=== PATIENT | female | born 1990 | race Caucasian/White ===

== ENCOUNTER → 2018-04-29 14:41 | Outpatient (CLI) | payer OTHER, SELFPAY ==
--- NOTE | 2018-05-21 16:16 | P.HOLT.S_ITS ---
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 Rare PACs and PVCs but no clear association with any patient reported symptoms Clinical correlation suggested
== END ==
PROVIDERS: PCP Family Medicine; Visit Provider Family Medicine
DX: R00.2 Palpitations (principal)
CPT/HCPCS: 0296T; 0298T

== ENCOUNTER → 2018-05-28 09:30 | Outpatient (CLI) | payer OTHER, SELFPAY ==
[2018-05-28 11:01] LABS: Add Manual Diff / Slide Review NO; Basophils Absolute Auto 100 /uL (0-100); Basophils Percent Auto 0.7 % (0-2); Eosinophils Absolute Auto 100 /uL (0-450); Eosinophils Percent Auto 0.8 % (2-4); Hematocrit 40.1 % (36-46); Lymphocytes Absolute Auto 2100 /uL (1100-4500); Lymphocytes Percent Auto 29.2 % (25-40); Mean Corpuscular HGB Conc 32.4 % (30-36); Mean Corpuscular Hemoglobin 26.1 PG (26-34); Mean Corpuscular Volume 80.6 fL (80-100); Monocytes Absolute Auto 500 /uL (0-900); Monocytes Percent Auto 6.9 % (3-14); Neutrophils Absolute Auto 4500 /uL (1500-7000); Neutrophils Percent Auto 62.4 % (50-75); Platelet Count 421 X10^3/uL (150-400); Red Blood Cell Count 4.97 X10^6/uL (4.0-5.2); Red Cell Distribution Width 15.3 % (11.6-14.8); White Blood Cell Count 7.1 X10^3/uL (4.5-11.0)
[2018-05-28 11:50] LABS: Alanine Aminotransferase 25 IU/L (9-52); Albumin 4.8 g/dL (3.5-5.0); Albumin Globulin Ratio 1.5 (1.0-2.8); Alkaline Phosphatase 66 U/L (38-126); Aspartate Aminotransferase 23 IU/L (14-36); BUN Creatinine Ratio 16.3 (6-22); Bilirubin Total 0.6 mg/dL (0.2-1.3); Blood Urea Nitrogen 13 mg/dL (7-17); Calcium 9.7 mg/dL (8.4-10.2); Carbon Dioxide 25 mmol/L (22-32); Chloride 101 mmol/L (98-107); Estimated Glomerular Filt Rate > 60.0 mL/min (>60); Globulin 3.2 g/dL (1.7-4.1); Glucose 92 mg/dL (70-100); HEMOLYSIS < 15 (0-50); Potassium 4.4 mmol/L (3.4-5.1); Sodium 139 mmol/L (137-145)
[2018-05-28 12:18] LABS: TSH w/ Reflex to FT4 1.63 uIU/mL (0.47-4.68)
== END ==
PROVIDERS: PCP Family Medicine; Visit Provider Family Medicine
DX: R00.2 Palpitations (principal)
CPT/HCPCS: 36415; 80053; 84443; 85025

== ENCOUNTER → 2018-06-09 08:24 | Outpatient (CLI) | payer OTHER, SELFPAY ==
--- NOTE | 2018-06-09 08:25 | DI.ECHO.S_ITS ---
[facility] +---------+ : : [address] : : : : [id number] : : : : Phone: [phone] Echocardiogram Report + + :Name: LAURA VILLA Study Date: 06/09/2018 Height: 61 in : :[facility] Exam Location: IS Weight: 145 lb : : Gender: Female BSA: 1.6 m2 : :: 1990 Age: 27 yrs BP: 105/68 mmHg: :Reason For Study: PALPITATION : : Performed By: Parag Paula : :Referring: KUSH NGUYỄN : + + Interpretation Summary The left ventricle is normal in size. There is normal left ventricular wall thickness. The ejection fraction is estimated to be 60-65%. There are no focal wall motion abnormalities. The right ventricle is normal in size and function. -Essentially normal echocardiogram with no change compared to the prior echo on 05/05/2011. Procedure: A two-dimensional transthoracic echocardiogram with color flow and Doppler was performed. The study quality was technically adequate. Comparison is made with the echocardiogram of 04/25/11. The patient was in normal sinus rhythm during the exam. Left Ventricle: The left ventricle is normal in size. There is normal left ventricular wall thickness. The ejection fraction is estimated to be 60-65%. There are no focal wall motion abnormalities. Diastolic parameters suggest probable normal left ventricular diastolic function and normal filling pressures. Right Ventricle: The right ventricle is normal in size and function. Atria: Both atria are normal in size. There is no Doppler evidence for an interatrial shunt. Mitral Valve: The mitral valve is normal in structure and function. There is no mitral regurgitation noted. Aortic Valve: The aortic valve is trileaflet. The aortic valve opens well. There is no aortic regurgitation. Tricuspid Valve: The tricuspid valve is normal in structure and function. No tricuspid regurgitation. Pulmonary artery pressures cannot be estimated because of the lack of a measurable TR jet velocity. Pulmonic Valve: The pulmonic valve is normal in structure and function. There is trace pulmonic regurgitation. Great Vessels: The aortic root is normal size. The dimensions of the ascending aorta are normal. The pulmonary artery is normal size. The IVC is of normal diameter and collapses greater than 50% with a sniff. This suggests a low right atrial pressure of 3 mm Hg. Pericardium/ Pleura There is no pericardial effusion. There is no pleural effusion. MMode/2D Measurements & Calculations LVIDd: 4.5 cm LVOT diam: 2.0 cm LVIDs: 2.9 cm Ao root diam: 2.6 cm FS: 34.5 % asc Aorta Diam: 2.5 cm EPSS: 0.78 cm Ao Arch Diam (Prox Trans): 1.6 cm IVSd: 0.76 cm LVPWd: 0.68 cm LV fisher. diameter/BSA (cm/m^2): 2.7 LV sys. diameter/BSA (cm/m^2): 1.8 LA dimension: 2.8 cm RA long axis: 5.0 cm LA A2 area: 13.4 cm2 RA area: 12.3 cm2 LA A4 area: 17.3 cm2 RA vol: 25.7 ml LA length (vol): 5.2 cm RA : 15.6 ml/m2 LA vol: 37.9 ml IVC diam: 1.3 cm LA vol index: 23.0 ml/m2 Doppler Measurements & Calculations Ao V2 max: 136.5 cm/sec LVOT Max Lukas: 98.9 cm/sec Ao V2 mean: 89.6 cm/sec LV V1 max P.9 mmHg Ao max P.5 mmHg LV V1 VTI: 21.0 cm Ao mean P.6 mmHg KRISTOPHER(I,D): 2.5 cm2 Ao V2 VTI: 26.3 cm KRISTOPHER(V,D): 2.3 cm2 sev ratio: 0.80 KRISTOPHER indexed to BSA (cm^2/m^2): 1.5 MV E max lukas: 78.6 cm/sec PA V2 max: 74.8 cm/sec MV A max lukas: 52.1 cm/sec PA V2 mean: 53.4 cm/sec MV E/A: 1.5 PA mean P.3 mmHg Med Peak E' Lukas: 12.5 cm/sec PA pr(Accel): 21.6 mmHg E/E' med: 6.3 PA Accel Time: 0.12 sec Lat Peak E' Lukas: 13.9 cm/sec E/E' lat: 5.7 E/e' average: 6.0 MV dec time: 0.13 sec SV(LVOT): 66.4 ml Electronically signed by: Enzo Donis M.D. on Reading Physician:06/09/2018 08:55 PM
== END ==
LOC: ECHO 08:24
PROVIDERS: PCP Family Medicine; Visit Provider Family Medicine
DX: R00.2 Palpitations (principal)
CPT/HCPCS: C8929

== ENCOUNTER → 2019-12-21 14:03 | Outpatient (CLI) | payer OTHER, SELFPAY | PROVIDERS: PCP Family Medicine; Referring Provider Internal Medicine; Visit Provider Internal Medicine | DX: Z23 Encounter for immunization (principal) | CPT/HCPCS: 90471; 90686 ==

== ENCOUNTER → 2020-01-19 10:06 | Outpatient (CLI) | payer OTHER, SELFPAY ==
[2020-01-20 07:16] LABS: COVID19 Sendout Not Detected (Not Detect)
== END ==
PROVIDERS: PCP Family Medicine; Visit Provider Physician Assistant
DX: Z11.59 Encounter for screening for other viral diseases (principal); R05 Cough; J02.9 Acute pharyngitis, unspecified
CPT/HCPCS: 87070; 87635

== ENCOUNTER → 2020-04-27 09:29 | Outpatient (CLI) | payer OTHER, SELFPAY ==
--- NOTE | 2020-04-27 | DI.US.S_ITS ---
PROCEDURE: US OB <= 14 WEEKS FETUS INDICATIONS: RULE OUT ECTOPIC OUTSIDE/PRIOR DATING DATA: Last menstrual period (LMP): 02/23/20 LMP-based estimated date of delivery (GEORGE): 11/29/20. First dating scan (date and location): This study. Estimated date of delivery (GEORGE) from first dating scan: 11/30/20. TECHNIQUE: Real-time scanning was performed of the fetus and maternal pelvic organs, with image documentation. Endovaginal scanning was also performed to better visualize the fetus and maternal ovaries. COMPARISON: None. FINDINGS: Embryo: Single living intrauterine gestation with heart rate 171 beats per minute and crown-rump length 2.3 cm which correlates with a gestational age of 9 weeks 0 days Measurement variability in dating: +/- 4 weeks by LMP, +/- 7 days by mean sac diameter (use before 6 weeks gestation if crown-rump length not able to be measured), +/- 5 days by crown-rump length (up to 8 weeks 6 days gestation), +/- 7 days by crown-rump length (up to 13 weeks 6 days gestation). Maternal organs: Ovaries poorly seen . IMPRESSION: Intrauterine gestation, 9 weeks 0 days gestational age with delivery date projected to be centered on 11/30/20, +/-5 days. Dictated by: Ford Gay M.D. on 04/27/2020 at 11:41 Approved by: Ford Gay M.D. on 04/27/2020 at 11:42
== END ==
PROVIDERS: PCP Family Medicine; Referring Provider Advanced Practice Midwife; Visit Provider Advanced Practice Midwife
DX: O36.80X0 Pregnancy with inconclusive fetal viability, not applicable or unspecified; Z3A.09 9 weeks gestation of pregnancy
CPT/HCPCS: 76801; 76817

== ENCOUNTER → 2021-02-05 10:51 | Outpatient (CLI) | payer OTHER, SELFPAY | PROVIDERS: PCP Family Medicine; Referring Provider Internal Medicine; Visit Provider Internal Medicine | DX: Z23 Encounter for immunization (principal) | CPT/HCPCS: 90471; 90686 ==

== ENCOUNTER 2021-07-14 16:28 | Emergency (ER) | payer OTHER, SELFPAY ==
[2021-07-14] VITALS (7 sets, daily range): BP systolic 120–131; BP diastolic 59–80; PULSE 80–90; RESP 16–34; TEMP 36.3; O2SAT 97–98
[2021-07-14 17:02] LABS: Add Manual Diff / Slide Review NO; Basophils Absolute Auto 100 /uL (0-100); Basophils Percent Auto 1.8 % (0-2); Eosinophils Absolute Auto 200 /uL (0-450); Hematocrit 39.7 % (36-46); Hemoglobin 13.2 g/dL (12.0-16.0); Lymphocytes Absolute Auto 3200 /uL (1100-4500); Lymphocytes Percent Auto 41.3 % (25-40); Mean Corpuscular HGB Conc 33.3 % (30-36); Mean Corpuscular Hemoglobin 29.2 PG (26-34); Mean Corpuscular Volume 87.6 fL (80-100); Monocytes Absolute Auto 600 /uL (0-900); Monocytes Percent Auto 7.2 % (3-14); Neutrophils Absolute Auto 3700 /uL (1500-7000); Neutrophils Percent Auto 47.7 % (50-75); Platelet Count 381 X10^3/uL (150-400); Red Blood Cell Count 4.53 X10^6/uL (4.0-5.2); Red Cell Distribution Width 13.3 % (11.6-14.8); White Blood Cell Count 7.7 X10^3/uL (4.5-11.0)
[2021-07-14 17:08] LABS: Alanine Aminotransferase 30 IU/L (<35); Albumin 4.3 g/dL (3.5-5.0); Albumin Globulin Ratio 1.5 (1.0-2.8); Alkaline Phosphatase 79 U/L (38-126); Aspartate Aminotransferase 48 IU/L (14-36); BUN Creatinine Ratio 20.6 (6-22); Bilirubin Total 0.4 mg/dL (0.2-1.3); Blood Urea Nitrogen 14 mg/dL (7-17); Calcium 8.7 mg/dL (8.4-10.2); Carbon Dioxide 26 mmol/L (22-32); Chloride 106 mmol/L (98-107); Estimated Glomerular Filt Rate > 60 mL/min (>60); Globulin 2.8 g/dL (1.7-4.1); Glucose 111 mg/dL (70-100); HEMOLYSIS < 15 (0-50); Lipase 106 U/L (23-300); Potassium 3.7 mmol/L (3.4-5.1); Sodium 140 mmol/L (137-145); Total Protein 7.1 g/dL (6.3-8.2)
--- NOTE | 2021-07-14 17:48 | ED.GENADULT ---
HPI - General Adult General Chief complaint: Abdominal Pain Stated complaint: V/D bloody stool, severe abd pain Time Seen by Provider: 07/14/21 16:35 Source: patient Mode of arrival: Ambulatory Limitations: no limitations History of Present Illness HPI narrative: 31-year-old female who is here for evaluation of upper abdominal pain. She states that the discomfort has been there for the past several weeks. Does get worse when she eats. Some nausea but no vomiting. She also has had some diarrhea with some blood in the stool. She is not been evaluated for these symptoms up to this point. No rashes. No urinary symptoms. No prior abdominal surgeries. She does state that there are periods of time when she is not having any discomfort however when she eats the symptoms worsen. Related Data Previous Rx's Medication Instructions Recorded norgestimate 0.25 mg-ethinyl 1 tab PO DAILY #28 tab 03/06/21 estradiol 35 mcg tablet (Sprintec (28)) sucralfate 1 gram tablet (Carafate) 1 g PO QACHS #60 tab 07/14/21 Allergies Allergy/AdvReac Type Severity Reaction Status Date / Time prednisolone [PREDNISOLONE] Allergy Unknown swollen Verified 01/19/20 09:37 gums/sore mouth Review of Systems Constitutional Constitutional: Denies fever(s) Cardiovascular Cardiovascular: Denies chest pain and Denies dyspnea Respiratory Respiratory: Denies dyspnea Gastrointestinal Gastrointestinal: Reports abdominal pain, Reports diarrhea, Reports nausea and Denies vomiting Genitourinary Genitourinary: Denies dysuria Musculoskeletal Musculoskeletal: Reports system reviewed and no additional complaints, except as documented Integumentary/Breasts Skin/Breast: Reports system reviewed and no additional complaints, except as documented Hematologic/Lymphatic On Anticoagulants: No Patient History Medical History Obesity (BMI 30.0-34.9) Surgical History Anesthesia Blepharitis (~1991) History of tonsillectomy (~2006) Status post delivery (~2011) Family History Father Age: 64 Heart disease Diabetes mellitus Grandfather Age: 89 Heart disease Grandmother Age: 74 Diabetes mellitus Mother Age: 58 Thyroid disease Social History marital status: unmarried,single number of children: 1 household members: family (4 kids total! 3 stepkids) lives independently: Yes education level: high school occupational status: employed Smoking Status: Never smoker alcohol intake: current (social) substance use type: does not use Smoking Status: Never smoker Exam Initial Vital Signs Initial Vital Signs: Vital Signs Temperature 97.4 F L 07/14/21 16:32 Pulse Rate 83 07/14/21 16:32 Respiratory Rate 24 07/14/21 16:32 Blood Pressure 131/60 07/14/21 16:32 Pulse Oximetry 97 07/14/21 16:32 HENMT Head: normal to inspection and normocephalic Resp Effort & Inspection: normal respiratory effort Auscultation: clear to auscultation bilaterally Cardio Rate: regular rate Rhythm: regular rhythm GI Inspection: normal to inspection Palpation: soft, No guarding and tender (Epigastric and right upper quadrant) Back/Spine/Pelvis Back: No CVA tenderness Skin General: no rashes or lesions noted Neuro General: patient alert, patient awake and moves all extremities Extrem General: capillary refill normal Psych Appearance: grossly normal and well kempt Course Orders Ordered: ED Orders 07/14/21 14:45 Complete Blood Count AUTO DIFF Stat Comprehensive Metabolic Panel Stat Lipase Stat 07/14/21 17:28 Ictotest Urine Stat Urine Microscopic Stat 07/14/21 17:49 US abdomen limited Stat Discontinued Medications Al Hydrox/Mg Hydrox/Simethicone 20 ml/ Lidocaine HCl 15 ml 0 ml PO NOW ONE Stop: 07/14/21 17:49 Last Admin: 07/14/21 18:04 Dose: 45 ml Documented by: RICARDO Pantoprazole Sodium (Pantoprazole 40 Mg Vial) 40 mg IV NOW ONE Stop: 07/14/21 17:49 Last Admin: 07/14/21 18:03 Dose: 40 mg Documented by: RICARDO Sucralfate (Sucralfate 1 Gm Tablet) 1 gm PO NOW ONE Stop: 07/14/21 19:29 Vital Signs Vital signs: Vital Signs - 8 hr 07/14/21 16:32 07/14/21 17:01 07/14/21 17:30 Temperature 97.4 F L Pulse Rate 83 80 85 Respiratory Rate 24 34 H 22 Blood Pressure 131/60 127/59 L 128/70 Pulse Oximetry 97 98 98 Medical Decision Making Lab Data Result diagrams: 07/14/21 14:45 07/14/21 14:45 Labs: Lab Results 07/14/21 07/14/21 07/14/21 Range/Units 14:45 14:45 17:28 WBC 7.7 (4.5-11.0) X10^3/uL RBC 4.53 (4.0-5.2) X10^6/uL Hgb 13.2 (12.0-16.0) g/dL Hct 39.7 (36-46) % MCV 87.6 (80-100) fL MCH 29.2 (26-34) PG MCHC 33.3 (30-36) % RDW 13.3 (11.6-14.8) % Plt Count 381 (150-400) X10^3/uL Neut % (Auto) 47.7 L (50-75) % Lymph % (Auto) 41.3 H (25-40) % Jewell % (Auto) 7.2 (3-14) % Eos % (Auto) 2.0 (2-4) % Baso % (Auto) 1.8 (0-2) % Neut # (Auto) 3700 (4646-6368) /uL Lymph # (Auto) 3200 (3579-6308) /uL Jewell # (Auto) 600 (0-900) /uL Eos # (Auto) 200 (0-450) /uL Baso # (Auto) 100 (0-100) /uL Sodium 140 (137-145) mmol/L Potassium 3.7 (3.4-5.1) mmol/L Chloride 106 (98-107) mmol/L Carbon Dioxide 26 (22-32) mmol/L BUN 14 (7-17) mg/dL Creatinine 0.68 (0.52-1.04) mg/dL Estimated GFR > 60 (>60) mL/min BUN/Creatinine Ratio 20.6 (6-22) Glucose 111 H (70-100) mg/dL Calcium 8.7 (8.4-10.2) mg/dL Total Bilirubin 0.4 (0.2-1.3) mg/dL AST 48 H (14-36) IU/L ALT 30 (<35) IU/L Alkaline Phosphatase 79 (38-126) U/L Total Protein 7.1 (6.3-8.2) g/dL Albumin 4.3 (3.5-5.0) g/dL Globulin 2.8 (1.7-4.1) g/dL Albumin/Globulin Ratio 1.5 (1.0-2.8) Lipase 106 (23-300) U/L Ur Bilirubin Confirm (Negative) Urine RBC 1-5/hpf (0-5/HPF) Urine WBC 5-10/hpf H (0-5/HPF) Ur Squamous Epith Cells 5-10 /hpf H (0-5/HPF) Urine Bacteria Many (>30) H (None) Urine Mucus 1+ H (Negative) Ur Culture Indicated? Cult not indicated 07/14/21 Range/Units 17:28 WBC (4.5-11.0) X10^3/uL RBC (4.0-5.2) X10^6/uL Hgb (12.0-16.0) g/dL Hct (36-46) % MCV (80-100) fL MCH (26-34) PG MCHC (30-36) % RDW (11.6-14.8) % Plt Count (150-400) X10^3/uL Neut % (Auto) (50-75) % Lymph % (Auto) (25-40) % Jewell % (Auto) (3-14) % Eos % (Auto) (2-4) % Baso % (Auto) (0-2) % Neut # (Auto) (0591-3462) /uL Lymph # (Auto) (4534-4503) /uL Jewell # (Auto) (0-900) /uL Eos # (Auto) (0-450) /uL Baso # (Auto) (0-100) /uL Sodium (137-145) mmol/L Potassium (3.4-5.1) mmol/L Chloride (98-107) mmol/L Carbon Dioxide (22-32) mmol/L BUN (7-17) mg/dL Creatinine (0.52-1.04) mg/dL Estimated GFR (>60) mL/min BUN/Creatinine Ratio (6-22) Glucose (70-100) mg/dL Calcium (8.4-10.2) mg/dL Total Bilirubin (0.2-1.3) mg/dL AST (14-36) IU/L ALT (<35) IU/L Alkaline Phosphatase (38-126) U/L Total Protein (6.3-8.2) g/dL Albumin (3.5-5.0) g/dL Globulin (1.7-4.1) g/dL Albumin/Globulin Ratio (1.0-2.8) Lipase (23-300) U/L Ur Bilirubin Confirm Negative (Negative) Urine RBC (0-5/HPF) Urine WBC (0-5/HPF) Ur Squamous Epith Cells (0-5/HPF) Urine Bacteria (None) Urine Mucus (Negative) Ur Culture Indicated? Point of Care Testing Test Results Negative Urine Dip Bedside Urine Glucose Negative Bedside Urine Bilirubin + 1 Bedside Urine Ketone - Negative Urine Specific [place] 1.030 Bedside Urine Occult Blood +/- Bedside Urine pH 5.5 Bedside Urine Protein +/- 15 Bedside Urine Urobilinogen - Negative Bedside Urine Nitrite - Negative Bedside Urine Leukocytes - Negative Esterase Point of care testing: Point of Care Testing Test Results Negative Urine Dip Bedside Urine Glucose Negative Bedside Urine Bilirubin + 1 Bedside Urine Ketone - Negative Urine Specific [place] 1.030 Bedside Urine Occult Blood +/- Bedside Urine pH 5.5 Bedside Urine Protein +/- 15 Bedside Urine Urobilinogen - Negative Bedside Urine Nitrite - Negative Bedside Urine Leukocytes - Negative Esterase Imaging Data US - abdomen: Radiologist's Impression: [place] [address] Ultrasound Report Signed Patient: Nava White MR#: [id number] : 1990 Acct:[id number] Age/Sex: 31 / F Date of Service: 07/14/21 Loc: ED Accession Number: [id number] ?? Procedure: US abdomen limited Ordering Provider: Jovani Vinson D.O. PROCEDURE: US ABDOMEN LIMITED ? INDICATIONS:? RUQ ab pain eval for Gb pathology ? TECHNIQUE:? Real-time focused scanning was performed of the abdomen, with image documentation.? ? COMPARISON:? None. ? FINDINGS:? There are 2 polyps within the anterior wall gallbladder measuring 3 mm. Gallbladder wall is otherwise within normal limits.? No cholelithiasis.? Negative sonographic Sutton sign.? No biliary ductal dilatation.? Pancreas is grossly unremarkable. ? IMPRESSION:? Gallbladder polyps.? No evidence of cholecystitis.? ? ? Dictated by: Moe Walter M.D. on 07/14/2021 at 18:56 ? ? Approved by: Moe Walter M.D. on 07/14/2021 at 18:57 MDM Narrative Medical decision making narrative: Labs are unremarkable here benign exam. Right upper quadrant ultrasound shows unremarkable gallbladder. LFTs unremarkable. Lipase unremarkable. Given her presentation and the symptoms she describes in the length of time that she has had the symptoms I feel that we can hold on any CT scan for now. Have a strong suspicion that her symptoms are gastric ulcer. Feel somewhat better after the GI cocktail. Was sent home on Carafate. She was given instructions on its use. We also discussed starting on a proton pump inhibitor after the Carafate and discussed contacting her primary doctor for follow-up to discuss the indications for referral to see GI for an upper endoscopy. Patient and her mother who was at bedside expressed understanding and agreement with plan. Discharge Plan Departure Patient Disposition: Home Clinical Impression: Abdominal pain Instructions: DI for Gastroesophageal Reflux Disease (GERD), DI for Abdominal Pain-Adult Activity Restrictions/Additional Instructions: Recommend that you take the Carafate as directed. After 7-10 days if your symptoms improve then you can take it as needed. If your symptoms return after this I recommend starting a medicine such as Nexium/Prilosec/as omeprazole etc. you can purchase these [id number]. I do recommend that you contact your primary doctor for follow-up as well. If your symptoms worsen please return to the emergency department for further evaluation. Prescriptions: New sucralfate [Carafate] 1 gram tablet 1 g PO QACHS Qty: 60 0RF No Action norgestimate-ethinyl estradiol [Sprintec (28)] 0.25-35 mg-mcg tablet 1 tab PO DAILY Qty: 28 3RF Referrals: Dawna Beach DO [Primary Care Provider] -
--- NOTE | 2021-07-14 17:49 | DI.US.S_ITS ---
PROCEDURE: US ABDOMEN LIMITED INDICATIONS: RUQ ab pain eval for Gb pathology TECHNIQUE: Real-time focused scanning was performed of the abdomen, with image documentation. COMPARISON: None. FINDINGS: There are 2 polyps within the anterior wall gallbladder measuring 3 mm. Gallbladder wall is otherwise within normal limits. No cholelithiasis. Negative sonographic Sutton sign. No biliary ductal dilatation. Pancreas is grossly unremarkable. IMPRESSION: Gallbladder polyps. No evidence of cholecystitis. Dictated by: Moe Walter M.D. on 07/14/2021 at 18:56 Approved by: Moe Walter M.D. on 07/14/2021 at 18:57
[2021-07-14] MEDS: PANTOPRAZOLE 40 MG VIAL IV (18:03)
[2021-07-14] MEDS: MAG HYDROX/ALUMINUM/SIMETH SUS 20 ML, LIDOCAINE VISCOUS 2% 15 ML PO (18:04)
[2021-07-14 18:06] LABS: Bacteria Urine Many (>30); Culture Indicated Urine Cult Not Indicated; Mucus Urine 1+ (Negative); RBC Urine 1-5/HPF (0-5/HPF); Squamous Epithelial Cell Urine 5-10 /HPF (0-5/HPF); WBC Urine 5-10/HPF (0-5/HPF)
[2021-07-14 18:07] LABS: Ictotest Urine Negative (Negative)
[2021-07-14] MEDS: SUCRALFATE 1 GM TABLET PO (19:51)
== END 2021-07-14 19:50 | disposition home or self-care (01) ==
PROVIDERS: Emergency Provider Emergency Medicine; PCP Family Medicine
DX: R10.10 Upper abdominal pain, unspecified (principal)
CPT/HCPCS: 36415; 76705; 80053; 81003; 81015; 81025; 83690; 85025; 96374; 99284; C9113

== ENCOUNTER → 2022-01-30 10:51 | Outpatient (CLI) | payer OTHER, SELFPAY | PROVIDERS: PCP Family Medicine; Referring Provider Internal Medicine; Visit Provider Internal Medicine | DX: Z23 Encounter for immunization (principal) | CPT/HCPCS: 90471; 90686 ==

== ENCOUNTER → 2022-03-25 14:58 | Outpatient (CLI) | payer OTHER, SELFPAY ==
[2022-03-25 16:41] LABS: Influenza A - CEPHEID Flu A NEGATIVE (NEGATIVE); Influenza B - CEPHEID Flu B NEGATIVE (NEGATIVE); Respiratory Syncytial Virus Negative (Negative)
[2022-03-25 16:44] LABS: COVID-19 CEPHEID 4-PLEX PCR Negative (Negative)
== END ==
PROVIDERS: PCP Family Medicine; Visit Provider Registered Nurse
DX: R05.1 Acute cough (principal); Z20.822 Contact with and (suspected) exposure to COVID-19
CPT/HCPCS: 0241U

== ENCOUNTER → 2024-11-24 12:17 | Outpatient (CLI) | payer BC, SELFPAY ==
[2024-11-24 13:00] LABS: Add Manual Diff / Slide Review NO; Hematocrit 41.7 % (36-46); Hemoglobin 13.8 g/dL (12.0-16.0); Lymphocytes Absolute Auto 2300 /uL (1100-4500); Mean Corpuscular HGB Conc 33.2 % (30-36); Mean Corpuscular Hemoglobin 29.4 PG (26-34); Mean Corpuscular Volume 88.5 fL (80-100); Platelet Count 360 X10^3/uL (150-400)
[2024-11-24 13:22] LABS: HEMOLYSIS < 15 (0-50); Iron 62 ug/dL (37-170)
[2024-11-24 13:34] LABS: Percent Iron Saturation 13 % (15-50); Total Iron Binding Capacity 475 ug/dL (265-497); Transferrin 416 mg/dL (206-381)
[2024-11-24 14:00] LABS: Ferritin 14 ng/mL (6-137)
[2024-11-24 14:56] LABS: Follicle Stimulating Hormone 4.91 mIU/mL
== END ==
PROVIDERS: PCP Student in an Organized Health Care Education/Training Program; Referring Provider Student in an Organized Health Care Education/Training Program; Visit Provider Student in an Organized Health Care Education/Training Program
DX: N92.0 Excessive and frequent menstruation with regular cycle (principal)
CPT/HCPCS: 36415; 82672; 82728; 83001; 83540; 83550; 84146; 85025

== ENCOUNTER → 2025-02-10 07:46 | Outpatient (CLI) | payer BC, SELFPAY ==
--- NOTE | 2025-02-10 07:47 | DI.US.S_ITS ---
PROCEDURE: US ABDOMEN LIMITED INDICATIONS: EPIGASTRIC PAIN. NAUSEA/VOMITING. TECHNIQUE: Real-time scanning was performed of the abdominal and retroperitoneal organs, with image documentation. COMPARISON: [facility], , US ABDOMEN LIMITED, 07/14/2021, 18:37. FINDINGS: Liver: Diffusely mildly increased at hepatic echotexture. No focal hepatic lesion. Gallbladder: 2 non mobile gallstones, including a a 1.4 cm stone in the gallbladder neck. Nonobstructive 1.3 cm stone in the gallbladder fundus. Circumferential gallbladder wall thickening up to 4 mm. Focal echogenic foci within the gallbladder anterior walking which which may represent adenomyomatosis. Increased echogenicity of the pericholecystic fat, likely reactive. Biliary ducts: Intrahepatic bile ducts are non-dilated. Extrahepatic bile duct caliber measures 3 mm. Normal is 6-7 mm or less in diameter, or 10 mm or less post-cholecystectomy. Pancreas: Visualized portions of the pancreas are sonographically normal. Miscellaneous: No free abdominal fluid. IMPRESSION: Findings concerning for acute sonographic cholecystitis. The patient was directed to the emergency room for further evaluation. The findings were conveyed by the sonographic technologist to the ER physician at 8:14 a.m on 02/10/2025. Dictated by: Jayden Cox M.D. on 02/10/2025 at 8:34 Approved by: Jayden Cox M.D. on 02/10/2025 at 8:36
== END ==
LOC: US 07:46
PROVIDERS: PCP Student in an Organized Health Care Education/Training Program; Referring Provider Student in an Organized Health Care Education/Training Program; Visit Provider Surgery
DX: K80.20 Calculus of gallbladder without cholecystitis without obstruction (principal); R10.13 Epigastric pain
CPT/HCPCS: 76705

== ENCOUNTER 2025-02-10 08:12 | Emergency (ER) | payer BC, SELFPAY ==
[2025-02-10] VITALS (9 sets, daily range): BP systolic 122–160; BP diastolic 62–90; PULSE 74–85; RESP 16; TEMP 36.8; O2SAT 68–100; BMI 31.4
--- NOTE | 2025-02-10 08:16 | ED.ABDPAIN ---
HPI - Abdominal Pain General Chief Complaint: Abdominal Pain Stated Complaint: Gallbladder pain , 2 months Time Seen by Provider: 02/10/25 08:15 History of Present Illness HPI narrative: 34-year-old female with history of obesity, no chronic medical issues, history of section, no other prior abdominal surgeries, here with intermittent upper abdominal discomfort. Patient reports pain has been ongoing for a couple of years. Since the end of December, or over the last month, she has had increased frequency of discomfort, typically every other night, associated with nausea and vomiting. She was referred to General surgery by her primary care physician due to concerns for peptic ulcer. Endoscopy was offered but she says what for a right upper quadrant ultrasound today to exclude biliary pathology. She was referred to the emergency department by radiologist given abnormal findings. Patient is not in any pain at this time. She is not aware of any fever. She has no associated urinary symptoms. Related Data Previous Rx's ?Medication ?Instructions ?Recorded norgestimate 0.25 mg-ethinyl 1 tab PO DAILY #84 tabs 12/09/24 estradiol 0.035 mg tablet (Sprintec (28)) famotidine 20 mg tablet 20 mg PO DAILY #90 tabs 01/16/25 ondansetron 4 mg disintegrating 4 mg PO Q8H 3 days #9 tabs 02/10/25 tablet Allergies Allergy/AdvReac Type Severity Reaction Status Date / Time prednisolone (PREDNISOLONE) Allergy Unknown swollen Verified 02/10/25 08:24 gums/sore mouth Review of Systems Review of Systems Narrative: Pertinent ROS obtained and negative except as stated in HPI Patient History Medical History Obesity (BMI 30.0-34.9) Surgical History Anesthesia Blepharitis (~1991) Status post delivery (~2011) History of tonsillectomy (~2006) Family History Father Age: 67 Heart disease Diabetes mellitus Grandfather Age: 92 Heart disease Grandmother Age: 77 Diabetes mellitus Mother Age: 61 Thyroid disease Social History marital status: unmarried,single number of children: 1 household members: family (4 kids total! 3 stepkids) lives independently: Yes education level: high school occupational status: employed Smoking Status: Current every day smoker alcohol intake: current (social) substance use type: does not use Exam Narrative Exam Narrative: Constitutional: Well appearing, no acute distress Head: NCAT Cardiovascular: normal rate, appears well perfused Pulmonary: normal effort Abdomen: Soft, nontender, negative Sutton's sign Extremities: No LE edema Skin: warm and dry Neurological: Alert Initial Vital Signs Initial Vital Signs: Vital Signs Blood Pressure 160/90 H 02/10/25 08:19 Course Orders Ordered: Discontinued Medications Piperacillin Sod/Tazobactam (Sod 4.5 gm/ Sodium Chloride) 100 mls @ 200 mls/hr IV NOW ONE Stop: 02/10/25 08:22 Last Infusion: 02/10/25 09:10 Dose: Infused Documented By: Admin: 02/10/25 08:40 Dose: 200 mls/hr Documented By: LINH Morphine Sulfate (Morphine 4 Mg/Ml Inj) 4 mg IV Q1H PRN PRN Reason: Pain, Mild (1-3) Ondansetron HCl (Ondansetron 4 Mg/2 Ml Inj) 4 mg IV Q2HR PRN PRN Reason: Nausea And Vomiting MDM - Abdominal Pain Lab Data 02/10/25 08:38 02/10/25 08:38 Labs: Lab Results 02/10/25 Range/Units 08:38 WBC 5.8 (4.5-11.0) X10^3/uL RBC 4.63 (4.0-5.2) X10^6/uL Hgb 13.5 (12.0-16.0) g/dL Hct 40.2 (36-46) % MCV 86.9 (80-100) fL MCH 29.1 (26-34) PG MCHC 33.5 (30-36) % RDW 12.9 (11.6-14.8) % Plt Count 325 (150-400) X10^3/uL Neut % (Auto) 60.6 (50-75) % Lymph % (Auto) 30.6 (25-40) % [place] % (Auto) 6.8 (3-14) % Eos % (Auto) 1.5 L (2-4) % Baso % (Auto) 0.5 (0-2) % Neut # (Auto) 3500 (0596-5847) /uL Lymph # (Auto) 1800 (0931-3439) /uL [place] # (Auto) 400 (0-900) /uL Eos # (Auto) 100 (0-450) /uL Baso # (Auto) 0 (0-100) /uL Sodium 138 (137-145) mmol/L Potassium 3.9 (3.4-5.1) mmol/L Chloride 107 (98-107) mmol/L Carbon Dioxide 23 (22-32) mmol/L BUN 10 (7-17) mg/dL Creatinine 0.74 (0.52-1.04) mg/dL Estimated GFR > 60 (>60) mL/min BUN/Creatinine Ratio 13.5 (6-22) Glucose 108 H (70-99) mg/dL Calcium 9.0 (8.4-10.2) mg/dL Total Bilirubin 0.3 (0.2-1.3) mg/dL AST 23 (14-36) IU/L ALT 14 (<35) IU/L Alkaline Phosphatase 60 (38-126) U/L Total Protein 7.7 (6.3-8.2) g/dL Albumin 4.5 (3.5-5.0) g/dL Globulin 3.2 (1.7-4.1) g/dL Albumin/Globulin Ratio 1.4 (1.0-2.8) Lipase 74 (23-300) U/L Point of care testing: Point of Care Testing Test Results Negative MDM Narrative Medical decision making narrative: In brief, this is a 34-year-old female with history of obesity, no chronic medical issues, here with intermittent upper abdominal discomfort, now becoming more frequent, underwent an ultrasound today that was abnormal of her gallbladder and referred to the emergency room. Per radiology interventional physician patient had findings on her ultrasound of acute cholecystitis In chart review: I see patient has history of obesity, prescribed OCPs and famotidine On arrival to the emergency department, the patient is well-appearing in no acute distress. She has no abdominal tenderness. Vital signs are normal Differential diagnoses considered but not limited to: Biliary colic, chronic cholecystitis, peptic ulcer. Exam is not consistent with acute cholecystitis Initial treatment plan includes: Establish IV, send laboratories, urine test, give IV Zosyn, request US report once available Laboratories pertinent for: normal CBC, CMP, lipase Imaging pertinent for: Ultrasound abdomen obtained today is outpatient shows 2 nonmobile gallstones, including a 1.4 cm stone in the gallbladder neck. Nonobstructive 1.3 cm stone in the gallbladder fundus. Circumferential gallbladder wall thickening up to 4 mm. Focal echogenic foci within the gallbladder anterior walking which may represent adenomyomatosis. Increased echogenicity of the pericholecystic fat. ? Spoke with campaign consultant/surgeon Dr. Lua at 0940 regarding US result and laboratories. Will come to ED to evaluate. On reassessment at 0945 pt is resting comfortably Per Dr. Lua, exam not consistent with surgical abdomen today. Will set up patient outpatient for cholecystectomy in the next 1 week. Return precautions discussed and provided prior to discharge Pertinent scoring tools used to guide clinical decision making, if applicable: Discharge Plan Departure Patient Disposition: Home Clinical Impression: Biliary colic Activity Restrictions/Additional Instructions: Ultrasound today did show multiple gallstones and thickened gallbladder. Please call surgery office to schedule cholecystectomy/gallbladder removal. The surgeon's plan to remove your gallbladder in the next week. As we discussed and would like you to return to the emergency department for abdominal pain that does not resolve or is associated with fever, vomiting and not able to keep fluids down, tender abdomen, or other worsening symptoms or symptoms that are concerning to you as this could be signs of a gallbladder infection that would warrant emergent gallbladder removal Prescriptions: New ondansetron 4 mg tablet,disintegrating 4 mg PO Q8H 3 Days Qty: 9 0RF No Action famotidine 20 mg tablet 20 mg PO DAILY Qty: 90 3RF norgestimate-ethinyl estradiol [Sprintec (28)] 0.25-0.035 mg tablet 1 tab PO DAILY Qty: 84 3RF Referrals: Dolores Mosley MD [Primary Care Provider, Family Practice] You Casper MD [Physician, General Surgery] Referral Note: schedule c/s Stand Alone Forms: Patient Portal/API
[2025-02-10] MEDS: PIPERACILLIN/TAZO 4.5 GM in SODIUM CHLORIDE 0.9% 100 ML IV (08:40)
[2025-02-10 08:54] LABS: Add Manual Diff / Slide Review NO; Hematocrit 40.2 % (36-46); Hemoglobin 13.5 g/dL (12.0-16.0); Lymphocytes Absolute Auto 1800 /uL (1100-4500); Mean Corpuscular HGB Conc 33.5 % (30-36); Mean Corpuscular Hemoglobin 29.1 PG (26-34); Mean Corpuscular Volume 86.9 fL (80-100); Platelet Count 325 X10^3/uL (150-400)
[2025-02-10 09:12] LABS: Albumin 4.5 g/dL (3.5-5.0); Albumin Globulin Ratio 1.4 (1.0-2.8); Alkaline Phosphatase 60 U/L (38-126); Blood Urea Nitrogen 10 mg/dL (7-17); Carbon Dioxide 23 mmol/L (22-32); Chloride 107 mmol/L (98-107); Estimated Glomerular Filt Rate > 60 mL/min (>60); Globulin 3.2 g/dL (1.7-4.1); Lipase 74 U/L (23-300); Potassium 3.9 mmol/L (3.4-5.1); Sodium 138 mmol/L (137-145); Total Protein 7.7 g/dL (6.3-8.2)
[2025-02-10 09:14] LABS: Alanine Aminotransferase 14 IU/L (<35); Calcium 9.0 mg/dL (8.4-10.2); Glucose 108 mg/dL (70-99); HEMOLYSIS 16 (0-50)
--- NOTE | 2025-02-10 09:50 | PM.CN.IH.1 ---
History of Present Illness Consult details Date Patient Seen: 02/10/25 Time Patient Seen: 09:51 Chief complaint: Gallbladder pain , 2 months Narrative: Nava is a 34-year-old woman who saw Dr. Casper at [facility] about a week ago for epigastric abdominal pain. The pain has been present for years but has gotten progressively worse recently. It typically occurs in the evenings. Dr. Casper ordered an ultrasound which was performed today. The ultrasound showed gallstones and thickening of the gallbladder wall. She was told to come to the ER based on the findings. She is currently in no pain. Her labs are normal this morning. Meds Home Medications and Allergies Home Medications ?Medication ?Instructions ?Recorded ?Confirmed ?Type norgestimate 0.25 mg-ethinyl 1 tab PO DAILY #84 tabs 12/09/24 02/01/25 Rx estradiol 0.035 mg tablet (Sprintec (28)) famotidine 20 mg tablet 20 mg PO DAILY #90 tabs 01/16/25 02/01/25 Rx ondansetron 4 mg disintegrating 4 mg PO Q8H 3 days #9 tabs 02/10/25 Rx tablet Allergies Allergy/AdvReac Type Severity Reaction Status Date / Time prednisolone (PREDNISOLONE) Allergy Unknown swollen Verified 02/10/25 08:24 gums/sore mouth Exam Vital Signs (past 8 hours): - 02/10/25 08:19 02/10/25 08:24 02/10/25 08:27 Temperature 98.3 F Pulse Rate Respiratory Rate 16 Blood Pressure 160/90 H 160/90 H Pulse Oximetry 68 L Oxygen Delivery Method Room Air 02/10/25 08:28 02/10/25 08:30 02/10/25 08:30 Temperature Pulse Rate 84 Respiratory Rate Blood Pressure 142/79 H 141/80 H Pulse Oximetry 99 Oxygen Delivery Method 02/10/25 08:30 02/10/25 09:00 02/10/25 09:00 Temperature Pulse Rate 85 79 Respiratory Rate Blood Pressure 132/75 Pulse Oximetry 99 100 Oxygen Delivery Method 02/10/25 09:18 02/10/25 09:18 Temperature Pulse Rate 76 Respiratory Rate Blood Pressure 136/63 Pulse Oximetry 99 Oxygen Delivery Method Oxygen Delivery Method Room Air Narrative Exam Narrative: Abdomen is soft, nontender No Sutton sign Const General: No acute distress Objective Labs 02/10/25 08:38 02/10/25 08:38 Labs: Laboratory Results - last 24 hr 02/10/25 08:38 WBC 5.8 RBC 4.63 Hgb 13.5 Hct 40.2 MCV 86.9 MCH 29.1 MCHC 33.5 RDW 12.9 Plt Count 325 Neut % (Auto) 60.6 Lymph % (Auto) 30.6 [place] % (Auto) 6.8 Eos % (Auto) 1.5 L Baso % (Auto) 0.5 Neut # (Auto) 3500 Lymph # (Auto) 1800 [place] # (Auto) 400 Eos # (Auto) 100 Baso # (Auto) 0 Sodium 138 Potassium 3.9 Chloride 107 Carbon Dioxide 23 BUN 10 Creatinine 0.74 Estimated GFR > 60 BUN/Creatinine Ratio 13.5 Glucose 108 H Calcium 9.0 Total Bilirubin 0.3 AST 23 ALT 14 Alkaline Phosphatase 60 Total Protein 7.7 Albumin 4.5 Globulin 3.2 Albumin/Globulin Ratio 1.4 [facility] Medical History Obesity (BMI 30.0-34.9) Surgical History Anesthesia Blepharitis (~1991) Status post delivery (~2011) History of tonsillectomy (~2006) Family History Father Age: 67 Heart disease Diabetes mellitus Grandfather Age: 92 Heart disease Grandmother Age: 77 Diabetes mellitus Mother Age: 61 Thyroid disease Social History marital status: unmarried,single number of children: 1 household members: family (4 kids total! 3 stepkids) lives independently: Yes education level: high school occupational status: employed Tobacco & Substance Use Smoking Status: Current every day smoker alcohol intake: current (social) substance use type: does not use Assessment & Plan Assessment and plan (1) Symptomatic cholelithiasis: Status: Acute Plan Although the ultrasound definitely shows gallstones and thickening of the gallbladder wall her exam is completely benign at this moment and all blood work is normal. No need for emergent surgery today. I will notify Dr. Casper and our office staff to expedite her elective cholecystectomy. Time-Based Coding :: [TOTAL MINUTES] spent with patient and on the chart (including review of chart, obtaining history, exam, reviewing outside data, placing orders, documenting exam and treatment plan, and counseling patient) on [DATE]. PROFEE Charge Codes Inpatient or Observation consultation: [id number]
== END 2025-02-10 10:05 | disposition home or self-care (01) ==
PROVIDERS: Emergency Provider Student in an Organized Health Care Education/Training Program; PCP Student in an Organized Health Care Education/Training Program
DX: K80.20 Calculus of gallbladder without cholecystitis without obstruction (principal)
CPT/HCPCS: 36415; 76705; 80053; 81025; 83690; 85025; 96365; 99284; J2543; J7050

== ENCOUNTER 2025-02-15 07:48 | Day surgery (SDC) | payer BC, SELFPAY ==
[2025-02-14 07:40] VITALS: BMI 31.4
--- NOTE | 2025-02-15 | PATH_ITS ---
[facility] Accession Number: [id number] No. of containers..01 Tissue . 01 Material submitted: . gallbladder - GALLBLADDER . 01 Diagnosis: GALLBLADDER CHOLECYSTECTOMY: Mild chronic calculous cholecystitis and cholesterolosis. Negative for dysplasia or malignancy. MRV 02/20/2025 1323 Local . 01 Electronically signed: . Saloni Clifford MD, Pathologist NPI- [id number] . 01 Gross description: . Received in formalin with two patient identifiers and gallbladder, is a 9.5 x 2.7 x 2.5 cm intact gallbladder. The serosa is weber-brown and smooth. The stapled cystic duct margin is inked black. The mucosa is green with diffuse yellow stippling. The wall is 0.3 to 0.7 cm thick. The lumen contains green, viscous bile and two 1.5 to 1.8 cm yellow, nodular calculi. Lymph nodes are not grossly identified. Architect Manager sections with cystic duct margin and gallbladder wall are submitted in cassette A1. ([id number]) /RANDEE 02/16/2025 0956 Local . 01 Pathologist provided ICD-10: K80.10 . 01 CPT . 470073 Specimen Comment: A courtesy copy of this report has been sent to [facility] Performed at: [address] [facility] [facility], [place], [place] [id number] MD Lambert Hicks MD Phone: [phone]
--- NOTE | 2025-02-15 08:17 | PM.PREOP ---
Pre-operative Note Interval Note History & Physical reviewed/Exam performed by Physician: Yes Changes to H&P: No ASA Class (for procedural sedation): I
[2025-02-15] MEDS: LACTATED RINGERS 1,000 ML 42 ML IV (08:23)
[2025-02-15 08:25] VITALS: BP 127/77; PULSE 85; RESP 16; TEMP 36.3; O2SAT 97
[2025-02-15] MEDS: ACETAMINOPHEN IV 1,000 MG/100 ML VIAL 400 MG IV (09:24)
[2025-02-15] MEDS: BUPivacaine 0.25% W/ EPI (PF) 30 ML VIAL 60 ML INJ (09:42)
--- NOTE | 2025-02-15 10:16 | DI.RAD.S_ITS ---
PROCEDURE: XR CHOLANGIOGRAM OPERATIVE INDICATIONS: Cholecystectomy. COMPARISON: None. FINDINGS: Biliary ducts: The surgeon injected contrast into the biliary ducts after cannulation of the cystic duct stump. Visualized intra- and extrahepatic bile ducts are normal in caliber, without strictures. No intraluminal filling defects to suggest retained ductal stones or sludge. No evidence for iatrogenic ductal injury. Duodenum: Contrast flows promptly through the sphincter of Oddi into the duodenum, which appears normal in caliber. IMPRESSION: Normal operative cholangiogram Dictated by: Ford Gay M.D. on 02/16/2025 at 10:54 Approved by: Ford Gay M.D. on 02/16/2025 at 10:54
--- NOTE | 2025-02-15 10:19 | P.OP_ITS ---
Operative Date/Time/Diagnoses Date of procedure: 02/15/25 Time of procedure: 10:19 Pre-op diagnosis: Symptomatic cholelithiasis, cholecystitis, GERD Post-op diagnosis: same Procedure & Clinicians Procedure: Laparoscopic cholecystectomy with cholangiogram, EGD Same procedure(s) as scheduled: Yes Indications: 34yo F presented to office with GERD symptoms, RUQ u/s demonstrated gallstones with cholecystitis. Surgeon: You Casper Assisted?: No Anesthesia Type: General Operative Notes Findings: Cholelithiasis, acute/chronic cholecystitis, cholangiogram normal, EGD normal Closure Type: primary Specimen(s): other (gallbladder) Applied: none Estimated Blood Loss (mL): 10 Blood products transfused: none Procedure in detail: EGD Informed consent was obtained. The procedure, its risks, benefits, and alternatives were discussed. Patient understood and agreed to proceed. The patient was in supine position after general anesthesia. The video endoscope was inserted into the oropharynx and guided under direct vision into the esophagus, stomach, and duodenum which were carefully examined. The scope was retroflexed to examine the hiatus and gastroesophageal junction. The patient tolerated the procedure very well. There were no apparent complications. Significant EGD findings: Z-line noted at: 36cm No esophagitis No hiatal hernia No duodenitis Insignificant antral gastritis No ulcer in esophagus, stomach or duodenum Laparoscopic cholecystectomy with cholangiogram After informed consent and satisfactory general endotracheal anesthesia, the abdomen was prepped and draped in the usual sterile manner.? The patient received appropriate preoperative antibiotics and DVT prophylaxis.? Surgical time-out was performed with all team members in agreement.? The pneumoperitoneum was established under direct vision using the Yee direct trocar cutdown technique.? An 0 Vicryl [id number] suture was placed on the umbilical fascia.? The 10 mm 30 degree lens was inserted and no trauma secondary to the trocar insertion was noted.? We performed bilateral laparoscopic TAP blocks using 25 cc of 0.25% Marcaine with epinephrine.? The additional 10 cc of local was used in the skin and subcutaneous tissues at the incision sites for a total of 60 cc of local.? The patient was placed in reverse Trendelenburg, [id number] position.? The fundus of the gallbladder was grasped and retracted over the liver.? The infundibulum was retracted laterally for proper exposure of the cystic duct and artery.? Critical view of safety was achieved with 2 distinct structures entering the gallbladder and segment 5 of the liver posterior.? There was evidence for acute and chronic cholecystitis with edema and fibrosis. A cholangiogram was performed using a yellow ureteral catheter through the Mims clamp.? The cystic duct and cystic artery were skeletonized with hook cautery.? A clip was placed on the cystic duct next to the gallbladder.? A ductotomy was made with laparoscopic Metzenbaum scissors.? The cholangiogram was normal.? It demonstrated normal caliber right and left hepatic ducts, common hepatic duct and common bile duct without filling defect, mass or stricture.? The contrast flowed unobstructed into the duodenum.? The cholangiogram catheter was removed and the cystic duct was doubly clipped and d ivided.? The cystic artery was similarly skeletonized, doubly clipped and divided with laparoscopic Metzenbaum scissors.? The adhesions between the gallbladder and the liver were divided with hook cautery.? The gallbladder was placed into an endo-pouch and removed.? The gallbladder bed and clips were inspected and no bleeding or bile drainage was noted.? The trocars were removed and there was no bleeding noted at the trocar sites.? The 0 Vicryl [id number] suture was tied and there were no palpable fascial defects.? The skin incisions were closed using 4-0 Monocryl in a subcuticular manner.? Dermabond glue was applied as a final dressing.? The estimated blood loss was minimal.? The instrument sponge and needle counts were all correct x2.? The patient tolerated the procedure well and was extubated in the operating room and transported to the recovery area in stable condition. Complications: none Post-operative Condition: stable Disposition: PACU Plan for aftercare: PACU then home
[2025-02-15 10:21] VITALS: BP 115/59; PULSE 120; RESP 16; TEMP 36.4; O2SAT 98
[2025-02-15 10:25] VITALS: BP 109/59; PULSE 105; RESP 15; O2SAT 99
[2025-02-15 10:30] VITALS: BP 115/57; PULSE 104; RESP 16; O2SAT 98
[2025-02-15 10:35] VITALS: BP 121/64; PULSE 100; RESP 21; TEMP 36.6; O2SAT 99
[2025-02-15 10:45] VITALS: BP 117/63; PULSE 95; RESP 18; TEMP 36.6; O2SAT 99
== END 2025-02-15 11:41 | disposition home or self-care (01) ==
PROVIDERS: PCP Student in an Organized Health Care Education/Training Program; Referring Provider Student in an Organized Health Care Education/Training Program; Visit Provider Surgery
PROC: 0DJ08ZZ Inspection of Upper Intestinal Tract, Via Natural or Artificial Opening Endoscopic (ICD-10-PCS; CPT 47563; principal; 2025-02-15 08:45)
PROC: 0FT44ZZ Resection of Gallbladder, Percutaneous Endoscopic Approach (ICD-10-PCS; CPT 47563; 2025-02-15 08:45)
DX: K80.10 Calculus of gallbladder with chronic cholecystitis without obstruction (principal); K21.9 Gastro-esophageal reflux disease without esophagitis; K82.8 Other specified diseases of gallbladder
CPT/HCPCS: 47563; 43235; 74300; 81025; J0131; J0689; J1885; J2250; J2405; J2704; J3010; J7120; Q9967